=== PATIENT | male | born 1990 | race Caucasian/White ===

== ENCOUNTER 2022-06-24 15:30 | Inpatient (IN) ==
[2022-06-24] MEDS ORDERED: NALOXONE 0.4 MG/ML VIAL ONE ×2 (15:35→16:31)
[2022-06-24] MEDS: NALOXONE 4 MG in SODIUM CHLORIDE 0.9% 90 ML IV SCH (15:40)
[2022-06-24] MEDS ORDERED: SODIUM CHLORIDE 0.9% 1,000 ML IV STA (15:44)
[2022-06-24 16:05] LABS: Basophils # 0.1 10*3/uL (0.0-0.2); Basophils % 0.9 % (0.0-0.8); Eosinophils # 0.1 10*3/uL (0.0-0.87); Eosinophils % 1.2 % (0.00-10.9); Hematocrit 43.2 VOL% (42.0-52.0); Hemoglobin 14.2 GM/DL (14.0-18.0); Immature Granulocytes % 0.3 %; Immature Granulocytes Absolute 0.02 #; Lymphocytes # 2.5 10*3/uL (1.4-4.0); Lymphocytes % 37.2 % (21.2-54.2); Mean Corpuscular HGB Conc 32.9 GM/DL (32-36); Mean Corpuscular Volume 93.7 FL (87-102); Mean Platelet Volume 9.5 FL (9.6-12.0); Monocytes # 0.4 10*3/uL (0.11-0.8); Monocytes % 6.5 % (1.7-12.7); Neutrophils % 53.9 % (38.7-73.9); Platelet Count 241 T/CUMM (130-400); Red Blood Count 4.61 MC/CUMM (3.8-5.5); Red Cell Distribution Width 15.4 % (9.3-17.3); White Blood Count 6.8 T/CUMM (4-12)
[2022-06-24 16:26] LABS: Albumin 4.3 G/DL (3.4-5.0); Bilirubin,Total 1.3 MG/DL (0.20-1.00); Calcium 9.2 MG/DL (8.5-10.1); Osmolality,Calculated 276.8 MOS/KG (273-304); Total Protein 7.4 G/DL (6.4-8.2)
[2022-06-24 16:27] LABS: PT Patient Result 11.4 SECS (10.1-12.1)
[2022-06-24] MEDS: SODIUM CHLORIDE 0.9% 1,000 ML IV SCH ×2 (16:40→21:26)
[2022-06-24] MEDS ORDERED: ONDANSETRON 4 MG/2 ML VIAL IV PRN (16:43)
[2022-06-24] MEDS ORDERED: ALBUTEROL 2.5 MG/3 ML NEB RESP TX PRN (16:43)
[2022-06-24] MEDS ORDERED: NALOXONE 0.4 MG/ML VIAL IV STA ×2 (16:53→16:57)
[2022-06-24 17:18] LABS: Hyaline Casts,Urine 16 /LPF (0-3); Mucus,Urine Moderate /LPF (Occasional); RBC,Urine 1 /HPF (0-4); Squamous Epithelial Cell,Urine Occasional /HPF (0-10)
[2022-06-24 17:20] LABS: Bilirubin,Urine Small mg/dL (Negative); Blood, Urine Negative (Negative); Glucose,Urine (UA) Negative (Negative); Ketones,Urine Negative (Negative); Nitrite,Urine Negative (Negative); Protein,Urine Trace mg/dL (Negative); Urine Appearance Clear (Clear); Urine Color Yellow (Yellow); Urine Specific Gravity > 1.030 (1.001-1.035); Urine Urobilinogen 0.2 eU/dL (<2.0); Urine pH 5.5 (4.5-8.0)
[2022-06-24 17:48] LABS: Barbiturates Screen,Urine Negative (Negative); Benzodiazepines Screen,Urine Positive (Negative); Cannabinoid Screen,Urine Positive (Negative); Opiate Screen,Urine Positive (Negative); Phencyclidine Screen,Urine Negative (Negative)
[2022-06-24 18:09] VITALS: BP 122/89
[2022-06-24] MEDS: FAMOTIDINE 20 MG/2 ML VIAL IV SCH (18:15)
[2022-06-25] MEDS: SODIUM CHLORIDE 0.9% 1,000 ML IV SCH ×4 (00:57→13:53)
[2022-06-25 04:30] LABS: Basophils # 0.1 10*3/uL (0.0-0.2); Basophils % 0.7 % (0.0-0.8); Eosinophils # 0.1 10*3/uL (0.0-0.87); Eosinophils % 1.5 % (0.00-10.9); Hematocrit 40.4 VOL% (42.0-52.0); Hemoglobin 13.1 GM/DL (14.0-18.0); Immature Granulocytes % 0.3 %; Immature Granulocytes Absolute 0.02 #; Lymphocytes # 2.3 10*3/uL (1.4-4.0); Mean Corpuscular HGB Conc 32.4 GM/DL (32-36); Mean Corpuscular Volume 95.3 FL (87-102); Monocytes # 0.5 10*3/uL (0.11-0.8); Monocytes % 7.1 % (1.7-12.7); Neutrophils % 58.4 % (38.7-73.9); Platelet Count 202 T/CUMM (130-400); Red Blood Count 4.24 MC/CUMM (3.8-5.5); Red Cell Distribution Width 15.6 % (9.3-17.3); White Blood Count 7.3 T/CUMM (4-12)
[2022-06-25 05:00] LABS: Albumin 3.8 G/DL (3.4-5.0); Bilirubin,Total 1.4 MG/DL (0.20-1.00); Osmolality,Calculated 276.5 MOS/KG (273-304); Potassium 3.8 MMOL/L (3.5-5.1); Risk Ratio 5.78; Thyroid Stimulating Hormone 0.178 uIU/ml (0.358-3.74); Total Protein 6.8 G/DL (6.4-8.2); VLDL Cholesterol 42.2 MG/DL
[2022-06-25] MEDS: FAMOTIDINE 20 MG/2 ML VIAL IV SCH (05:27)
[2022-06-25] MEDS: NALOXONE 4 MG in SODIUM CHLORIDE 0.9% 90 ML IV SCH (09:08)
[2022-06-25] MEDS ORDERED: KETOROLAC 30 MG/1 ML VIAL IV ONE (11:26)
[2022-06-25] MEDS ORDERED: KETOROLAC 15 MG/1 ML VIAL IV ONE (11:30)
[2022-06-25] MEDS ORDERED: NICOTINE 7 MG/24 HR PATCH TRANSDERM PRN (12:53)
== END 2022-06-25 17:07 | disposition home or self-care (01) | DRG 917 ==
LOC: N.ED 15:30 → N.EDINP 16:43 → N.CC 17:40
PROVIDERS: ADMIT Internal Medicine; ATTEND Internal Medicine